=== PATIENT | female | born 1970 | race Caucasian/White ===

== ENCOUNTER 2021-03-29 10:22 | Emergency (ER) | payer OTHER ==
[2021-03-29] MEDS ORDERED: NORCO 5-325 TA1 EACH PO (11:09)
== END 2021-03-29 11:35 | disposition home or self-care (01) ==
LOC: FER 10:22
DX: S92.311A Displaced fracture of first metatarsal bone, right foot, initial encounter for closed fracture (principal); W22.8XXA Striking against or struck by other objects, initial encounter; Y92.009 Unspecified place in unspecified non-institutional (private) residence as the place of occurrence of the external cause
CPT/HCPCS: 73630

== ENCOUNTER 2021-09-07 13:08 | Emergency (ER) | payer OTHER ==
[~2021-09-07 13:08] MED LIST: NORCO 5-325 TA1 EACH PO
[2021-09-07] MEDS ORDERED: NORCO 5-325 TA1 EACH PO (15:14)
== END 2021-09-07 16:20 | disposition home or self-care (01) ==
LOC: FER 13:08
DX: S52.502A Unspecified fracture of the lower end of left radius, initial encounter for closed fracture (principal); F17.210 Nicotine dependence, cigarettes, uncomplicated; I25.2 Old myocardial infarction; Z28.310 Unvaccinated for COVID-19; Z95.5 Presence of coronary angioplasty implant and graft; W19.XXXA Unspecified fall, initial encounter; Y92.9 Unspecified place or not applicable
CPT/HCPCS: 73110; 73130